=== PATIENT | female | born 1990 | race Caucasian/White ===

== ENCOUNTER 2017-08-23 13:16 | Emergency (ER) | payer SELFPAY ==
[~2017-08-23] VITALS: Ht 157.5 cm; Wt 58.0 kg
[2017-08-23 13:34] VITALS: BP 103/56; PULSE 76; RESP 16; TEMP 98.2; O2SAT 98
[2017-08-23] MEDS ORDERED: SUBO2MIS SL (14:05)
[2017-08-23] MEDS ORDERED: AMOX875T PO (14:10)
--- NOTE | 2017-08-23 14:13 | PD ---
HPI Chief Complaint: Oral / Dental Pain or Problem Time Seen by Provider: 13:39 Travel History International Travel<30 days: No Contact w/Intl Traveler<30days: No Traveled to known affect area: No History of Present Illness HPI 27-year-old female that presents to the ED for evaluation of dental abscess. Patient has a history of this in the past. Per patient she is about 12 weeks . Per patient she started having significant discomfort since 2 days ago. She has had swelling since. She has a bad tooth. She smokes. She denies any urinary or bowel movement issues. No chest pain or shortness of breath. No fevers chills or sweats. Pain per patient is 7 out of 10. No other medical issues at this time. She follows with [facility]. PFSH Past Medical History Medical History: Denies Significant Hx Hx Anticoagulant Therapy: No Diabetes: No Tetanus Vaccination: < 5 Years Influenza Vaccination: No ?: Past Surgical History Abdominal Surgery: Yes (HERNIA REPAIR) Oral Surgery: Yes (DENTAL SURGERY) Social History Alcohol Use: No Tobacco Use: Yes (1/2 PPD, "TRYING TO QUIT") Substance Use: Yes (HX OF, OPIATE ABUSE, IN RECOVERY) Allergies-Medications (Allergen,Severity, Reaction): Coded Allergies: No Known Allergies (Unverified , 08/23/17) Reported Meds & Prescriptions Reported Meds & Active Scripts Active Amoxicillin 875 Mg Tab 875 Mg PO BID 10 Days Reported Suboxone Sublingual Film (Buprenorphine-Naloxone Sublingual Film) 2-0.5 Mg Film Unknown Dose SL Unique ID number required: Review of Systems Except as stated in HPI: all other systems reviewed are Neg Physical Exam Narrative GENERAL: SKIN: Warm and dry. HEAD: Atraumatic. Normocephalic. EYES: Pupils equal and round. No scleral icterus. No injection or drainage. ENT: No nasal bleeding or discharge. Mucous membranes pink and moist. Tongue is midline. No blood deviation. Dental: Patient has bad dentition throughout with most of the molars already gone. Patient does have a bad incisor with cavity on the left upper jaw and some soft tissue swelling of the gum in this area. NECK: Trachea midline. No JVD. CARDIOVASCULAR: Regular rate and rhythm. RESPIRATORY: No accessory muscle use. Clear to auscultation. Breath sounds equal bilaterally. GASTROINTESTINAL: Abdomen soft, non-tender, nondistended. Hepatic and splenic margins not palpable. MUSCULOSKELETAL: Extremities without clubbing, cyanosis, or edema. No obvious deformities. NEUROLOGICAL: Awake and alert. No obvious cranial nerve deficits. Motor grossly within normal limits. Five out of 5 muscle strength in the arms and legs. Normal speech. PSYCHIATRIC: Appropriate mood and affect; insight and judgment normal. Data Data Last Documented VS Vital Signs Date Time Temp Pulse Resp B/P (MAP) Pulse Ox O2 Delivery O2 Flow Rate FiO2 08/23/17 13:34 98.2 76 16 103/56 (72) 98 Orders Orders Ed Discharge Order (08/23/17 14:09) Amoxicillin (Trimox) (08/23/17 14:15) MDM Medical Decision Making Medical Screen Exam Complete: Yes Emergency Medical Condition: Yes Medical Record Reviewed: Yes Differential Diagnosis Abscess versus dentalgia versus dental infection Narrative Course 27-year-old female that presents to the ED for evaluation of dental pain. Patient was properly examined and was found to have signs and symptoms consistent with dental infection. She'll be given amoxicillin here. Given a prescription for this. Told to follow with PCP and that this. Tylenol for pain. See ED worsening symptoms. Diagnosis Primary Impression: Dental infection Patient Instructions: General Instructions Additional Instructions: Take medication as prescribed. Follow-up with PCP. See ED worsening symptoms. Follow with dentist. Med/Other Pt SpecificInfo: Prescription(s) given Scripts Amoxicillin (Amoxicillin) 875 Mg Tab 875 MG PO BID for Infection for 10 Days, #20 TAB 0 Refills Prov: Thomas Tao MD 08/23/17 Disposition: 01 DISCHARGE HOME Condition: Stable Aníbal Tracy Aug 23, 2017 14:13
[2017-08-23] MEDS ORDERED: AMOXICILLIN 875 MG TAB PO ONE (14:15)
== END 2017-08-23 14:30 | disposition home or self-care (01) ==
LOC: PHEFT 13:16
DX: O99.611 Diseases of the digestive system complicating pregnancy, first trimester (principal); K04.7 Periapical abscess without sinus; F17.210 Nicotine dependence, cigarettes, uncomplicated; Z79.891 Long term (current) use of opiate analgesic; Z3A.12 12 weeks gestation of pregnancy
CPT/HCPCS: 99283

== ENCOUNTER 2018-02-10 19:12 | Inpatient (IN) ==
--- NOTE | 2018-02-10 20:01 | P.HPOB ---
History of Present Illness Primary Care Physician: NOT REQUIRED Ginette Adamson Chief Complaint: Water broke History of Present Illness: 27-year-old white female previous 3 who now presents with the ruptured membranes, amnio sure is positive she is grossly ruptured. She is having irregular contractions NST is reactive she sees Ginette Adamson for care at [facility] Weeks Gestation:: 38 Para: 4 : 5 Review of Systems Constitutional: Denies anorexia, Denies body ache(s), Denies chills, Denies daytime sleepiness, Denies excessive sweating, Denies fatigue, Denies fever(s), Denies headache(s), Denies increased appetite, Denies lack of energy, Denies malaise, Denies night sweats, Denies weakness, Denies weight gain, Denies weight loss, Denies other Cardiovascular: Denies bluish discoloration of hand/feet, Denies chest pain, Denies chest pain at rest, Denies chest pain with activity, Denies excessive sweating, Denies fainting, Denies fast heart rate, Denies foot swelling, Denies generalized swelling, Denies irregular heart rhythm, Denies leg pain with activity, Denies leg sores, Denies leg swelling, Denies lightheadedness, Denies radiating jaw, neck or arm pain, Denies rapid, pounding, or irregular heartbeat , Denies shortness of breath, Denies shortness of breath with activity, Denies shortness of breath when lying down, Denies shortness of breath causing sudden awakening, Denies slow heart rate, Denies other Respiratory: Denies change in phlegm color, Denies chest congestion, Denies cough, Denies coughing up blood, Denies excessive phlegm production, Denies pain on inspiration, Denies pain with cough, Denies shortness of breath, Denies shortness of breath with activity, Denies snoring, Denies stridor, Denies wheezing, Denies other Gastrointestinal: Reports abdominal pain, Denies belching, Denies black, tarry stools, Denies bloating, Denies bright, red blood in stools, Denies change in bowel habits, Denies constant urge to pass stool, Denies change in stools, Denies coffee ground vomit, Denies constipation, Denies cramping, Denies difficulty swallowing, Denies excessive passing of gas, Denies feeling full early, Denies heartburn, Denies incontinent of stools, Denies loose stools, Denies nausea, Denies pain with swallowing, Denies vomiting, Denies vomiting blood, Denies other Genitourinary: Reports vaginal discharge, Denies abnormal periods, Denies abnormal vaginal bleeding, Denies absent period, Denies bleeding between periods , Denies blood in urine, Denies difficulty starting urination, Denies difficulty urinating, Denies dribbling after urination, Denies frequent nighttime urination, Denies genital itching, Denies genital lesions, Denies heavy periods, Denies hot flashes, Denies light periods, Denies nipple discharge , Denies painful intercourse, Denies painful periods, Denies painful urination, Denies pelvic pain, Denies prolapse symptoms, Denies sexual problems, Denies side pain, Denies urinary incontinence, Denies urinary urgency, Denies vaginal dryness, Denies vaginal odor, Denies vaginal itching, Denies other Neurologic: Denies abnormal hearing, Denies abnormal movements, Denies abnormal speech, Denies abnormal walking, Denies behavioral changes, Denies burning sensations, Denies confusion, Denies dizziness, Denies fainting, Denies frequent falls, Denies headache(s), Denies lack of coordination, Denies localized weakness, Denies loss of vision, Denies memory loss, Denies numbness, Denies other visual disturbances, Denies radiating pain, Denies restless legs, Denies convulsions, Denies seizure-like activity, Denies sensory deficit, Denies tingling, Denies tingling/numbness/burning sensations, Denies tremor(s), Denies unsteadiness, Denies weakness, Denies other Hematologic/Lymphatic: Denies easy bleeding, Denies easy bruising, Denies enlarged lymph nodes, Denies other PMFSH - Medical History Medical History: Medical History (Last Updated 02/10/18 @ 19:57 by Dakota Mendes MD) Previous section complicating - Tobacco History Smoking Status: Smoker, status unknown Tobacco Type: Cigarettes - Alcohol History How Often Do You Have a Drink Containing Alcohol: Never - Substance Use History Substance History: No History of Abuse, Active Abuse, Past History (Patient currently on Subutex to try and not take previously documented drugs) - Travel History History of Recent Travel: No Recent Travel in the [place] Within the Last 8 Weeks: No Recent Travel Out of the Country Within the Last 8 Weeks: No Medications and Allergies Allergies Allergy/AdvReac Type Severity Reaction Status Date / Time No Known Allergies Allergy Unverified 02/10/18 19:27 Exam Vital signs: Vital Signs 02/10/18 19:33 Pulse Rate 90 Respiratory Rate 16 Blood Pressure 102/56 L Intake & Output 02/10/18 02/10/18 02/11/18 06:59 18:59 06:59 Weight 136 kg Narrative: GENERAL: Well-nourished, well-developed patient. SKIN: Warm and dry. HEAD: Normocephalic and atraumatic. EYES: No scleral icterus. No injection or drainage. ENT: No nasal drainage noted. Mucous membranes pink. Airway patent. NECK: Supple, trachea midline. No JVD. CARDIOVASCULAR: Regular rate and rhythm without murmurs, gallops, or rubs. RESPIRATORY: Breath sounds equal bilaterally. No accessory muscle use. BREASTS: Bilateral exam showed no masses , no retractions, no nipple discharge. ABDOMEN/GI: Abdomen soft, non-tender, bowel sounds present, no rebound, no guarding Gravid to [37-] weeks size Fundal Height: [-36] GENITOURINARY: External Genitalia: intact and normal in appearance BUS glands: [-] Cervix: [pos-] Dilatation: [-1] Effacement: [90-] Station: [-3] Presentation: [-vtx] Membranes: [ ruptured] Uterine Contractions: [-q3 min] FHT's: Category: [1-] Baseline: [133-] Reactive: [R-] Variability: [mod-] Decels: [-0] EXTREMITIES: No cyanosis or edema. BACK: Nontender without obvious deformity. No CVA tenderness. NEUROLOGICAL: Awake and alert. Motor and sensory grossly within normal limits. Five out of 5 muscle strength in all muscle groups. Normal speech. - Constitutional no acute distress - Routine HEENT Exam Head: Present: normocephalic, atraumatic Eye: Present: PERRL Results - Labs Labs: Amnio sure positive Caprini VTE Risk Assessment Caprini VTE Risk Assessment: No/Low Risk (score <= 1) Caprini Risk Assessment Model: Point Value = 1 Point Value = 2 Point Value = 3 Point Value = 5 Age 41-60 Minor surgery BMI > 25 kg/m2 Swollen legs Varicose veins or History of unexplained or recurrent spontaneous Oral contraceptives or hormone replacement Sepsis (< 1 month) Serious lung disease, including pneumonia (< 1 month) Abnormal pulmonary function Acute myocardial infarction Congestive heart failure (< 1 month) History of inflammatory bowel disease Medical patient at bed rest Age 61-74 Arthroscopic surgery Major open surgery (> 45 min) Laparoscopic surgery (> 45 min) Malignancy Confined to bed (> 72 hours) Immobilizing plaster cast Central venous access Age >= 75 History of VTE Family history of VTE Factor V Leiden Prothrombin [id number] Lupus anticoagulant Anticardiolipin antibodies Elevated serum homocysteine Heparin-induced thrombocytopenia Other congenital or acquired thrombophilia Stroke (< 1 month) Elective arthroplasty Hip, pelvis, or leg fracture Acute spinal cord injury (< 1 month) Prophylaxis Regimen: Total Risk Factor Score Risk Level Prophylaxis Regimen 0-1 Low Early ambulation 2 Moderate Order ONE of the following: *Sequential Compression Device (SCD) *Heparin 5000 units SQ BID 3-4 Higher Order ONE of the following medications: *Heparin 5000 units SQ TID *Enoxaparin/Lovenox 40 mg SQ daily (WT < 150 kg, CrCl > 30 mL/min) *Enoxaparin/Lovenox 30 mg SQ daily (WT < 150 kg, CrCl > 10-29 mL/min) *Enoxaparin/Lovenox 30 mg SQ BID (WT < 150 kg, CrCl > 30 mL/min) AND/OR *Sequential Compression Device (SCD) 5 or more Highest Order ONE of the following medications: *Heparin 5000 units SQ TID (Preferred with Epidurals) *Enoxaparin/Lovenox 40 mg SQ daily (WT < 150 kg, CrCl > 30 mL/min) *Enoxaparin/Lovenox 30 mg SQ daily (WT < 150 kg, CrCl > 10-29 mL/min) *Enoxaparin/Lovenox 30 mg SQ BID (WT < 150 kg, CrCl > 30 mL/min) AND *Sequential Compression Device (SCD) Assessment and Plan - Diagnosis (1) Amniotic fluid leaking Code(s): O42.90 - Premature rupture of membranes, unspecified as to length of time between rupture and onset of labor, unspecified weeks of gestation Status : Acute (2) Previous section complicating Code(s): O34.219 - Maternal care for unspecified type scar from previous delivery Status: Acute (3) Uterine contractions during Code(s): O62.2 - Other uterine inertia Status: Acute (4) 38 weeks gestation of Code(s): Z3A.38 - 38 weeks gestation of Status: Acute - Plan This multiparous patient is previous 3 and is set to have a repeat section with tubal ligation. Patient signed tubal papers in 28 December and Ginette Adamson's office. She is gross rupture of membranes this time with contractions. Cervix only 1 cm. NST is reactive and plan to proceed with repeat tubal ligation
[2018-02-10] MEDS ORDERED: Citric Acid/Sodium Citrate Liq 30 ML UDC PO SCH (20:15)
[2018-02-10] MEDS ORDERED: Morphine Sulfate PF Inj 5 MG/10 ML Ampul ONE (20:22)
[2018-02-10 20:36] LABS: Baso # (Auto) 0.1 th/mm3 (0.0-0.2); Baso % (Auto) 0.4 % (0.0-2.0); Eos # (Auto) 0.2 th/mm3 (0.0-0.4); Eos % (Auto) 1.3 % (0.0-4.0); Hematocrit 30.2 % (35.0-46.0); Hemoglobin 10.4 gm/dL (11.6-15.3); Lymph # (Auto) 1.8 th/mm3 (1.0-4.8); Lymph % (Auto) 12.2 % (9.0-44.0); Mean Corpuscular HGB Conc 34.4 % (32.0-36.0); Mean Platelet Volume 8.3 fL (7.0-11.0); Neut # (Auto) 11.5 th/mm3 (1.8-7.7); Neut % (Auto) 79.1 % (16.0-70.0); Platelet Count 378 th/mm3 (150-450); Red Blood Count 3.15 mil/mm3 (4.00-5.30); Red Cell Distribution Width 12.7 % (11.6-17.2); White Blood Count 14.5 th/mm3 (4.0-11.0)
[2018-02-10 20:41] LABS: Bilirubin,Urine Negative (Negative); Clarity,Urine Clear (Clear); Color,Urine Yellow (Yellw/Straw); Glucose,Urine (UA) Negative (Negative); Leukocyte Esterase,Urine Negative (Negative); Nitrite,Urine Negative (Negative); Specific Gravity,Urine 1.014 (1.002-1.035); Squamous Epithelial Cell,Urine 1 /hpf (0-5)
[2018-02-10] MEDS ORDERED: ceFAZolin Inj 2,000 MG in Sodium Chlor 0.9% Inj 80 ML IV.SIG SCH (21:00)
[2018-02-10] MEDS ORDERED: fentaNYL Citrate Inj 100 MCG/2 ML Ampul ONE (21:38)
[2018-02-10] MEDS ORDERED: Phenylephrine/NS 1000 MCG/10ML Syringe IV.PUSH ONE (21:45)
[2018-02-10 22:01] LABS: Amphetamine Screen,Urine Neg (Neg); Barbiturate Screen,Urine Neg (Neg); Cannabinoid Screen,Urine Neg (Neg); Cocaine Screen,Urine Neg (Neg)
[2018-02-10 22:04] LABS: Opiate Screen,Urine Neg (Neg)
[2018-02-10] MEDS ORDERED: Zolpidem Tartrate 5 MG Tablet PO PRN (22:19)
[2018-02-10] MEDS ORDERED: Senna/Docusate Sodium 8.6/50 MG Tablet PO PRN (22:19)
[2018-02-10] MEDS ORDERED: Oxytocin 30 Units/500ml Premix 30 UNITS/500 ML BAG IV.SIG ONE (22:19)
[2018-02-10] MEDS ORDERED: Acetaminophen 325 MG Tablet PO PRN (22:19)
[2018-02-10] MEDS ORDERED: Methylergonovine Inj 0.2 MG/ML Ampul ONE (22:52)
[2018-02-10] MEDS ORDERED: miSOPROStol 200 MCG Tablet ONE (22:53)
[2018-02-10] MEDS ORDERED: Oxytocin 30 Units/500ml Premix 30 UNITS/500 ML BAG ONE ×3 (22:59→23:49)
--- NOTE | 2018-02-10 23:11 | P.OP ---
- Preoperative Diagnosis (1) Previous section complicating (2) Amniotic fluid leaking (3) Uterine contractions during - Postoperative Diagnosis (1) Amniotic fluid leaking (2) Previous section complicating Date of procedure: 02/10/18 Procedure: Repeat low transverse section bilateral tubal ligation Anesthesia: spinal Surgeon: Dakota Mendes MD Estimated blood loss (mL): 600 IV fluids (mL): 1,000 Urine output (mL): 100 Operation and Findings: Patient was taken the operating room and after spinal anesthesia prepped and draped for abdominal surgery. Previous Pfannenstiel incision was excised out cast-off incision carried to the fascia sharply and the fascia incised laterally and off the rectus muscle. The peritoneal cavity entered sharply in the midline the incision extended superior and inferiorly. The bladder blade placed lower is the incision and the visceral peritoneum reflected off the lower uterine segment. A transverse hysterotomy was made extended bluntly bilaterally and the placenta was encountered at that point, the female was delivered at 9:34 PM Apgars 8/ 8 weight 2435 gm , delayed cord clamping done cord blood obtained, placenta basically delivered itself through the incision and was sent to pathology. Baby taken to the warmer for routine to evaluate. The uterus exteriorized the hysterotomy closed in a running layer of 0 chromic followed by imbricating suture same hemostasis achieved with several stick ties. The uterus is elevated with sponges and the left tube was grasped with a Natalia clamp followed to fimbriated end. A avascular portion of mesosalpinx was found and hemostat passed through the mesosalpinx and 2 suture ties brought through that window and the tubes tied fore and aft and the intervening segment excised and sent to pathology. Same was done on the opposite side without difficulty and hemostasis was achieved. Uterus is elevated blood suctioned the cul-de-sac gutters and the uterus replaced the peritoneal cavity. The fascia was closed running layer of 0 Vicryl. Subcutaneous tissues reapproximated with 3-0 plain catgut suture and skin closed with 3-0 Monocryl subcuticular stitch. A pressure check applied. Estimated blood loss 600 cc, sponge and needle correct 2 and the patient taken to recovery in stable condition.
[2018-02-10] MEDS ORDERED: Carboprost Tromethamine Inj 250 MCG/ML Ampul IM ONE ×3 (23:30→23:44)
[2018-02-10] MEDS ORDERED: Tranexamic Acid Inj 1,000 MG/10 ML Ampul ONE (23:30)
[2018-02-10 23:38] LABS: Baso # (Auto) 0.1 th/mm3 (0.0-0.2); Baso % (Auto) 0.4 % (0.0-2.0); Eos # (Auto) 0.2 th/mm3 (0.0-0.4); Eos % (Auto) 0.7 % (0.0-4.0); Lymph # (Auto) 2.8 th/mm3 (1.0-4.8); Lymph % (Auto) 11.6 % (9.0-44.0); Mean Corpuscular HGB Conc 34.4 % (32.0-36.0); Mean Corpuscular Hemoglobin 33.6 pg (27.0-34.0); Mean Corpuscular Volume 97.5 fL (80.0-100.0); Mean Platelet Volume 8.6 fL (7.0-11.0); Mono # (Auto) 1.3 th/mm3 (0.0-0.9); Mono % (Auto) 5.2 % (0.0-8.0); Neut # (Auto) 19.8 th/mm3 (1.8-7.7); Neut % (Auto) 82.1 % (16.0-70.0); Platelet Count 342 th/mm3 (150-450); Red Blood Count 1.83 mil/mm3 (4.00-5.30); Red Cell Distribution Width 12.8 % (11.6-17.2); White Blood Count 24.1 th/mm3 (4.0-11.0)
[2018-02-10 23:42] LABS: Hematocrit 17.8 % (35.0-46.0); Hemoglobin 6.1 gm/dL (11.6-15.3)
[2018-02-10 23:56] LABS: Lymphocytes 14 % (9-44); Monocytes 4 % (0-8)
[2018-02-10 23:57] LABS: Platelet Estimate Normal (Normal); Platelet Morphology Normal (Normal); RBC Morphology Normal (Normal)
[2018-02-11] MEDS ORDERED: Tranexamic Acid Inj 1,000 MG/10 ML Ampul ONE (00:01)
[2018-02-11] MEDS ORDERED: Carboprost Tromethamine Inj 250 MCG/ML Ampul IM ONE ×2 (00:06→02:06)
[2018-02-11 00:12] LABS: Activated Partial Thrombo Time 25.9 sec (24.3-30.1); INR 1.1 Ratio; Prothrombin Time 11.1 sec (9.8-11.6)
[2018-02-11] MEDS ORDERED: Oxytocin 30 Units/500ml Premix 30 UNITS/500 ML BAG ONE (00:19)
[2018-02-11] MEDS ORDERED: Succinylcholine Inj 200 MG/10 ML Vial IV.PUSH ONE (00:45)
[2018-02-11] MEDS ORDERED: Lidocaine PF 1% Inj 5 ML Syringe OTHER ONE (00:45)
[2018-02-11] MEDS ORDERED: Morphine Inj 4 MG/ML Vial ONE ×2 (01:06)
[2018-02-11] MEDS ORDERED: Sugammadex Inj 200 MG/2 ML Vial IV.PUSH ONE (01:08)
[2018-02-11 01:40] LABS: Baso # (Auto) 0.2 th/mm3 (0.0-0.2); Baso % (Auto) 0.6 % (0.0-2.0); Eos % (Auto) 0.1 % (0.0-4.0); Hematocrit 27.9 % (35.0-46.0); Hemoglobin 9.4 gm/dL (11.6-15.3); Lymph # (Auto) 2.4 th/mm3 (1.0-4.8); Mean Corpuscular HGB Conc 33.6 % (32.0-36.0); Mean Corpuscular Hemoglobin 30.9 pg (27.0-34.0); Mean Platelet Volume 8.5 fL (7.0-11.0); Mono # (Auto) 0.9 th/mm3 (0.0-0.9); Mono % (Auto) 3.3 % (0.0-8.0); Neut # (Auto) 22.7 th/mm3 (1.8-7.7); Platelet Count 196 th/mm3 (150-450); Red Blood Count 3.04 mil/mm3 (4.00-5.30); Red Cell Distribution Width 15.2 % (11.6-17.2); White Blood Count 26.1 th/mm3 (4.0-11.0)
[2018-02-11 01:56] LABS: Activated Partial Thrombo Time 31.4 sec (24.3-30.1)
[2018-02-11 02:04] LABS: Anion Gap 9 meq/L (5-15); Blood Urea Nitrogen 8 mg/dL (7-18); Calcium 6.2 mg/dL (8.5-10.1); Carbon Dioxide 23.6 meq/L (21.0-32.0); Chloride 109 meq/L (98-107); Glomerular Filtration Rate Greater Than 89 mL/min (>89); Glucose,Random 186 mg/dL (74-106); Potassium 4.4 meq/L (3.5-5.1); Sodium 142 meq/L (136-145)
--- NOTE | 2018-02-11 02:05 | P.OP ---
- Preoperative Diagnosis (1) hemorrhage - Postoperative Diagnosis (1) hemorrhage Date of procedure: 02/11/18 Procedure: Post dilation and curettage and placement of Bakri uterine tamponade balloon Anesthesia: GETA Surgeon: Dakota Mendes MD Estimated blood loss (mL): 500 (Received 4 units packed red blood cells) IV fluids (mL): 1,000 Urine output (mL): 20 Operation and Findings: This multiparous patient previous was taken the operating room and had repeat section tubal ligation due to rupture the membranes at term , section itself was uneventful however in the recovery area the patient continued vaginal bleeding, that was unresponsive to uterotonic agents patient's blood pressure was in the range of 70-80/50 with a pulse greater than 100. [place] patient needed to have operative intervention. She was taken the operating room and placed on the operating table had a general anesthetic administered. She is placed in the dorsolithotomy position, and at that time the vagina was cleaned of all blood clots the uterus and cervix were examined. The cervix was noted to be approximately 3 cm dilated and then manually removed a large handful of blood clots. Cervix grasped with a long Allis clamp and a dilation and curettage was performed with a large banjo forcep, there is no sign of uterine injury. Small fragments of placental tissue was noted on a D& C. The uterus was adequately evacuated and then the Bakri uterine tamponade balloon was then placed into the uterus and was at that time deflated. Once placed in the uterus subsequent syringes of normal saline we filled the balloon to level of 420 cc. Then large packing gauze was used to pack the vagina to keep the balloon in place. This maneuver achieved hemostasis and there was no further vaginal bleeding noted post procedure,. estimate blood loss 500 cc, patient hemoglobin was 6 and she received 4 units of packed red cells before during and after procedure. Patient was transported to the third floor PACU for observation overnight
[2018-02-11] MEDS ORDERED: Methylergonovine Inj 0.2 MG/ML Ampul IM ONE (02:07)
[2018-02-11 02:08] LABS: Eosinophils 1 % (0-4); Lymphocytes 10 % (9-44); Metamyelocytes 1 % (0-1); Monocytes 3 % (0-8)
[2018-02-11] MEDS ORDERED: Oxytocin 30 Units/500ml Premix 30 UNITS/500 ML BAG IV.SIG ONE (02:08)
[2018-02-11 02:09] LABS: Platelet Estimate Normal (Normal); Platelet Morphology Normal (Normal); RBC Morphology Normal (Normal)
[2018-02-11] MEDS ORDERED: miSOPROStol 200 MCG Tablet RECTAL ONE (02:09)
[2018-02-11 02:20] LABS: Total Protein 3.4 g/dL (6.4-8.2)
[2018-02-11] MEDS: Morphine Inj 4 MG/ML Vial IV.PUSH PRN ×2 (02:55→08:06)
[2018-02-11] MEDS ORDERED: Tranexamic Acid Inj 1,000 MG in Sodium Chlor 0.9% Inj 100 ML IV.SIG SCH ×3 (03:00)
[2018-02-11] MEDS ORDERED: Oxytocin 30 Units/500ml Premix 30 UNITS/500 ML BAG IV.SIG PRN (03:19)
[2018-02-11] MEDS: Ampicillin/Sulbactam Inj 3 GM in Sodium Chloride 0.9% Inj 100 ML IV.SIG SCH ×2 (04:30→08:56)
[2018-02-11] MEDS: ceFAZolin Inj 2,000 MG in Sodium Chlor 0.9% Inj 80 ML IV.SIG SCH ×2 (04:54→16:58)
[2018-02-11 07:06] LABS: Baso # (Auto) 0.1 th/mm3 (0.0-0.2); Baso % (Auto) 0.2 % (0.0-2.0); Hematocrit 24.3 % (35.0-46.0); Hemoglobin 8.3 gm/dL (11.6-15.3); Lymph # (Auto) 1.3 th/mm3 (1.0-4.8); Mean Corpuscular HGB Conc 34.3 % (32.0-36.0); Mean Corpuscular Hemoglobin 30.8 pg (27.0-34.0); Mean Corpuscular Volume 89.8 fL (80.0-100.0); Mean Platelet Volume 8.4 fL (7.0-11.0); Mono # (Auto) 1.8 th/mm3 (0.0-0.9); Mono % (Auto) 5.5 % (0.0-8.0); Neut # (Auto) 29.2 th/mm3 (1.8-7.7); Neut % (Auto) 90.3 % (16.0-70.0); Platelet Count 193 th/mm3 (150-450); Red Cell Distribution Width 15.4 % (11.6-17.2); White Blood Count 32.3 th/mm3 (4.0-11.0)
[2018-02-11 07:18] LABS: Activated Partial Thrombo Time 25.9 sec (24.3-30.1); INR 1.1 Ratio; Prothrombin Time 10.8 sec (9.8-11.6)
[2018-02-11 07:33] LABS: Alanine Aminotransferase 20 U/L (10-53); Albumin 1.5 g/dL (3.4-5.0); Anion Gap 9 meq/L (5-15); Aspartate Aminotransferase 32 U/L (15-37); Blood Urea Nitrogen 12 mg/dL (7-18); Calcium 6.4 mg/dL (8.5-10.1); Carbon Dioxide 23.3 meq/L (21.0-32.0); Chloride 111 meq/L (98-107); Glomerular Filtration Rate Greater Than 89 mL/min (>89); Glucose,Random 105 mg/dL (74-106); Potassium 3.9 meq/L (3.5-5.1); Sodium 143 meq/L (136-145)
[2018-02-11 07:35] LABS: Alkaline Phosphatase 93 U/L (45-117); Total Protein 3.8 g/dL (6.4-8.2)
[2018-02-11] MEDS ORDERED: BUPRENORPHINE SL SCH (09:00)
[2018-02-11] MEDS ORDERED: PNV CMB FERROUS FUMARATE FA PO SCH (09:00)
[2018-02-11] MEDS ORDERED: NALOXONE SL SCH (09:00)
[2018-02-11 09:08] LABS: Lymphocytes 5 % (9-44); Monocytes 3 % (0-8)
[2018-02-11 09:09] LABS: Platelet Estimate Normal (Normal); Platelet Morphology Normal (Normal)
[2018-02-11] MEDS: Ferrous Sulfate 325 MG Tablet PO SCH (10:58)
--- NOTE | 2018-02-11 10:59 | P.PNOB ---
Subjective Post day: 1 Interval history: Patient was delivered by c Section, and had PPH , controlled with bakri uterine tamponade, after not responding to ureterotnic gaents. Pt is uncomfortable, c/o pain right flank. Objective Vital Signs/I&O: Vital Signs 02/10/18 19:33 02/10/18 20:45 02/10/18 22:35 Temperature 97.5 F L Pulse Rate 90 109 H Respiratory Rate 16 16 16 Blood Pressure 102/56 L 96/54 L Pulse Oximetry 02/10/18 22:50 02/10/18 22:56 02/10/18 23:05 Temperature Pulse Rate 115 H Respiratory Rate 16 Blood Pressure 82/43 L 70/53 L Pulse Oximetry 02/10/18 23:09 02/10/18 23:12 02/10/18 23:16 Temperature Pulse Rate Respiratory Rate Blood Pressure 87/50 L 93/54 L 99/50 L Pulse Oximetry 02/10/18 23:24 02/10/18 23:37 02/10/18 23:40 Temperature Pulse Rate Respiratory Rate Blood Pressure 96/51 L 84/50 L 92/50 L Pulse Oximetry 02/10/18 23:54 02/11/18 00:00 02/11/18 00:14 Temperature Pulse Rate Respiratory Rate Blood Pressure 101/59 L 93/53 L 101/56 L Pulse Oximetry 02/11/18 00:25 02/11/18 01:25 02/11/18 01:45 Temperature 96.7 F L Pulse Rate 62 61 Respiratory Rate 20 22 Blood Pressure 100/57 L 85/39 L 99/51 L Pulse Oximetry 100 100 02/11/18 02:00 02/11/18 02:15 02/11/18 02:30 Temperature 97.5 F L Pulse Rate 65 72 93 H Respiratory Rate 18 18 18 Blood Pressure 93/55 L 97/58 L 118/53 L Pulse Oximetry 100 100 100 02/11/18 02:52 02/11/18 02:55 02/11/18 03:01 Temperature 98.4 F Pulse Rate 90 Respiratory Rate 16 16 Blood Pressure 87/49 L Pulse Oximetry 02/11/18 03:03 02/11/18 03:20 02/11/18 03:25 Temperature Pulse Rate 86 80 98 H Respiratory Rate Blood Pressure 92/55 L 86/52 L 100/63 Pulse Oximetry 02/11/18 03:45 02/11/18 04:15 02/11/18 04:20 Temperature Pulse Rate 95 H 89 107 H Respiratory Rate Blood Pressure 95/63 L 97/61 L 104/61 Pulse Oximetry 02/11/18 04:30 02/11/18 05:00 02/11/18 05:20 Temperature Pulse Rate 95 H 105 H 100 H Respiratory Rate Blood Pressure 101/60 92/73 L 101/62 Pulse Oximetry 02/11/18 05:30 02/11/18 05:42 02/11/18 05:55 Temperature 99.4 F Pulse Rate 96 H 98 H Respiratory Rate Blood Pressure 92/58 L 109/65 Pulse Oximetry 02/11/18 06:00 02/11/18 07:00 02/11/18 07:15 Temperature Pulse Rate 99 H 93 H 86 Respiratory Rate Blood Pressure 104/55 L 104/63 102/55 L Pulse Oximetry 02/11/18 08:00 02/11/18 08:15 02/11/18 08:16 Temperature 98.0 F Pulse Rate 86 78 Respiratory Rate 16 Blood Pressure 106/63 105/65 Pulse Oximetry 02/11/18 08:30 02/11/18 09:01 02/11/18 09:49 Temperature 99.3 F Pulse Rate 79 78 85 Respiratory Rate 16 Blood Pressure 106/59 L 116/86 101/59 L Pulse Oximetry 02/11/18 10:05 02/11/18 10:20 02/11/18 10:30 Temperature Pulse Rate 82 79 85 Respiratory Rate Blood Pressure 108/52 L 100/65 107/61 Pulse Oximetry 02/11/18 10:40 02/11/18 10:51 Temperature 99.2 F Pulse Rate 84 Respiratory Rate 16 Blood Pressure Pulse Oximetry Intake & Output 02/10/18 02/11/18 02/11/18 18:59 06:59 18:59 Intake Total 1000 / 1000 Output Total 70 / 70 Balance 930 / 930 Weight 136 kg Intake: IV 100 / 100 Unasyn Inj 3 GM In NS Inj 100 100 / 100 ML @ 200 mls/hr IV.SIG Q6H [facility] Rx#:[id number] Other 500 / 500 Intake (Blood Product) Amt 400 / 400 Rbc As-3 Leukoreduced Unit 400 / 400 [id number] Rbc As-3 Leukoreduced Unit 0 / 0 [id number] Output: Urine Amount (Catheter) / Indwelling Urethral Catheter Result Diagrams: 02/11/18 06:40 02/11/18 06:40 Objective Remarks: GENERAL: Well-nourished, well-developed patient. CARDIOVASCULAR: Regular rate and rhythm without murmurs, gallops, or rubs. RESPIRATORY: Breath sounds equal bilaterally. No accessory muscle use. ABDOMEN/GI: Abdomen softly distended. Fundus firm, palpates about 3FB above umbilicus. Fundus: Firm, tender abdomen. GENITOURINARY: Light to moderate bleeding. EXTREMITIES: No cyanosis or edema, non-tender, without signs of DVT. Urine output satisfactory. Only about 10cc blood draining from intrauterine outlet. Urine Output satisfactory, about 75cc/hour. 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 [facility] Stop: 02/14/18 20:14 Diphtheria/Pertussis/Tetanus Vacc (Boostrix Vaccine Inj) 0.5 ml IM .ONCE ONE Stop: 02/11/18 16:01 Ferrous Sulfate (Ferosul) 65 mg PO DAILY [facility] Lactated Ringer's (Lr 1000 Ml Inj) 1,000 mls @ 150 mls/hr IV.CONT .Q6H40M [facility] Last Admin: 02/11/18 04:42 Dose: Not Given Cefazolin Sodium 2,000 mg/ (Sodium Chloride) 100 mls @ 200 mls/hr IV.SIG CONTACT LENS INSPECTOR [facility] Stop: 02/14/18 20:59 Last Admin: 02/10/18 21:10 Dose: 200 mls/hr Lactated Ringer's (Lr 1000 Ml Inj) 1,000 mls @ 100 mls/hr IV.CONT .Q10H [facility] Stop: 02/11/18 23:18 Last Admin: 02/11/18 04:49 Dose: 100 mls/hr Oxytocin (Pitocin 30 Units/Ns 500 Ml Premix) 30 units in 500 mls @ 100 mls/hr IV.SIG UNSCH PRN PRN Reason: Heavy bleeding Last Admin: 02/11/18 00:05 Dose: 100 mls/hr Tranexamic Acid 1,000 mg/ (Sodium Chloride) 110 mls @ 200 mls/hr IV.SIG ONCE [facility] Last Admin: 02/10/18 23:35 Dose: 200 mls/hr Tranexamic Acid 1,000 mg/ (Sodium Chloride) 110 mls @ 200 mls/hr IV.SIG ONCE [facility] Last Admin: 02/11/18 00:05 Dose: 200 mls/hr Ampicillin Sodium/Sulbactam (Sodium 3 gm/ Sodium Chloride) 100 mls @ 200 mls/ hr IV.SIG Q6H [facility] Last Admin: 02/11/18 08:56 Dose: 200 mls/hr Ibuprofen (Motrin) 800 mg PO Q8H PRN PRN Reason: cramping Ketorolac Tromethamine (Toradol Inj) 30 mg IM Q6H PRN PRN Reason: SEE LABEL COMMENTS Measles/Mumps/Rubella Vaccine Live (M-M-R Ii Vaccine Inj) 0.5 ml SQ .ONCE ONE Stop: 02/11/18 16:01 Morphine Sulfate (Morphine Inj) 4 mg IV.PUSH Q4H PRN PRN Reason: ABDOMINAL PAIN Last Admin: 02/11/18 08:06 Dose: 4 mg Ondansetron HCl (Zofran Inj) 4 mg IV.PUSH Q6H PRN PRN Reason: NAUSEA OR VOMITING Oxycodone/Acetaminophen (Percocet 5/325 Mg) 1 tab PO Q4H PRN PRN Reason: PAIN SCALE 3 TO 5 Oxycodone/Acetaminophen (Percocet 5/325 Mg) 2 tab PO Q4H PRN PRN Reason: PAIN SCALE 6 TO 10 Pat Own Med: Pnv Cmb #95-Ferrous Fumarate -Fa [] Tablet 0 each PO DAILY [facility] Pat Own Med: Buprenorphine- Naloxone [Suboxone] 4mg/1mg Film 0 each SL BID [facility] Senna/Docusate Sodium (Alicia-Colace) 2 tab PO Q12H PRN PRN Reason: CONSTIPATION Simethicone (Mylicon Chew) 80 mg PO QID PRN PRN Reason: FLATULENCE Sodium Chloride (Ns Flush) 2 ml IV.FLUSH BID [facility] Last Admin: 02/11/18 08:57 Dose: 2 ml Sodium Chloride (Ns Flush) 2 ml IV.FLUSH PRN PRN PRN Reason: FLUSH AFTER USING IV ACCESS Zolpidem Tartrate (Ambien) 5 mg PO HS PRN PRN Reason: INSOMNIA Assessment and Plan - Diagnosis (1) hemorrhage Code(s): O72.1 - Other immediate hemorrhage Status: Acute Plan: Patient is stable. She is s/p repeat LTCS, Vitals are stable, with good urine output. Bakri balloon in place, with minimal output from intrauterine outlet. Will attempt to optimize pain control. (1) hemorrhage Qualifiers: hemorrhage type: other immediate Qualified Code(s): O72.1 - Other immediate hemorrhage
[2018-02-11] MEDS ORDERED: HYDROmorphone PF Inj 2 MG/ML Vial IV.PUSH ONE (11:30)
[2018-02-11] MEDS ORDERED: Gentamicin Consult Pharmacy 1 EACH OTHER SCH (12:00)
[2018-02-11] MEDS: Clindamycin 900 mg/NS Premix 900 MG/50 ML PIGGYBACK IV.SIG SCH ×2 (13:04→21:28)
[2018-02-11 13:14] LABS: Mean Corpuscular Hemoglobin 30.2 pg (27.0-34.0); Mean Corpuscular Volume 88.8 fL (80.0-100.0); Mean Platelet Volume 8.8 fL (7.0-11.0); Platelet Count 186 th/mm3 (150-450); Red Cell Distribution Width 15.7 % (11.6-17.2); White Blood Count 41.5 th/mm3 (4.0-11.0)
[2018-02-11 13:22] LABS: Hematocrit 20.4 % (35.0-46.0)
[2018-02-11 13:24] LABS: Prothrombin Time 10.6 sec (9.8-11.6)
[2018-02-11] MEDS: GENTAMICIN IV.SIG SCH ×2 (14:24→21:29)
[2018-02-11] MEDS: SODIUM CHLOR 0.9% IV.SIG SCH ×2 (14:24→21:29)
[2018-02-11] MEDS: HYDROmorphone PF Inj 2 MG/ML Vial IV.PUSH PRN ×3 (15:08→23:39)
--- NOTE | 2018-02-11 15:38 | P.PNOB ---
Subjective Post day: 0 Interval history: Patient is doing well. Main complaint is abdominal pain. Urine output is good. Intrauterine drainage around the balloon remains minimal. Bakri balloon removal procedure explained. Objective Vital Signs/I&O: Vital Signs 02/10/18 19:33 02/10/18 20:45 02/10/18 22:35 Temperature 97.5 F L Pulse Rate 90 109 H Respiratory Rate 16 16 16 Blood Pressure 102/56 L 96/54 L Pulse Oximetry 02/10/18 22:50 02/10/18 22:56 02/10/18 23:05 Temperature Pulse Rate 115 H Respiratory Rate 16 Blood Pressure 82/43 L 70/53 L Pulse Oximetry 02/10/18 23:09 02/10/18 23:12 02/10/18 23:16 Temperature Pulse Rate Respiratory Rate Blood Pressure 87/50 L 93/54 L 99/50 L Pulse Oximetry 02/10/18 23:24 02/10/18 23:37 02/10/18 23:40 Temperature Pulse Rate Respiratory Rate Blood Pressure 96/51 L 84/50 L 92/50 L Pulse Oximetry 02/10/18 23:54 02/11/18 00:00 02/11/18 00:14 Temperature Pulse Rate Respiratory Rate Blood Pressure 101/59 L 93/53 L 101/56 L Pulse Oximetry 02/11/18 00:25 02/11/18 01:25 02/11/18 01:45 Temperature 96.7 F L Pulse Rate 62 61 Respiratory Rate 20 22 Blood Pressure 100/57 L 85/39 L 99/51 L Pulse Oximetry 100 100 02/11/18 02:00 02/11/18 02:15 02/11/18 02:30 Temperature 97.5 F L Pulse Rate 65 72 93 H Respiratory Rate 18 18 18 Blood Pressure 93/55 L 97/58 L 118/53 L Pulse Oximetry 100 100 100 02/11/18 02:52 02/11/18 02:55 02/11/18 03:01 Temperature 98.4 F Pulse Rate 90 Respiratory Rate 16 16 Blood Pressure 87/49 L Pulse Oximetry 02/11/18 03:03 02/11/18 03:20 02/11/18 03:25 Temperature Pulse Rate 86 80 98 H Respiratory Rate Blood Pressure 92/55 L 86/52 L 100/63 Pulse Oximetry 02/11/18 03:45 02/11/18 04:15 02/11/18 04:20 Temperature Pulse Rate 95 H 89 107 H Respiratory Rate Blood Pressure 95/63 L 97/61 L 104/61 Pulse Oximetry 02/11/18 04:30 02/11/18 05:00 02/11/18 05:20 Temperature Pulse Rate 95 H 105 H 100 H Respiratory Rate Blood Pressure 101/60 92/73 L 101/62 Pulse Oximetry 02/11/18 05:30 02/11/18 05:42 02/11/18 05:55 Temperature 99.4 F Pulse Rate 96 H 98 H Respiratory Rate Blood Pressure 92/58 L 109/65 Pulse Oximetry 02/11/18 06:00 02/11/18 07:00 02/11/18 07:15 Temperature Pulse Rate 99 H 93 H 86 Respiratory Rate Blood Pressure 104/55 L 104/63 102/55 L Pulse Oximetry 02/11/18 08:00 02/11/18 08:15 02/11/18 08:16 Temperature 98.0 F Pulse Rate 86 78 Respiratory Rate 16 Blood Pressure 106/63 105/65 Pulse Oximetry 02/11/18 08:30 02/11/18 09:01 02/11/18 09:49 Temperature 99.3 F Pulse Rate 79 78 85 Respiratory Rate 16 Blood Pressure 106/59 L 116/86 101/59 L Pulse Oximetry 02/11/18 10:05 02/11/18 10:20 02/11/18 10:30 Temperature Pulse Rate 82 79 85 Respiratory Rate Blood Pressure 108/52 L 100/65 107/61 Pulse Oximetry 02/11/18 10:40 02/11/18 10:50 02/11/18 10:51 Temperature 99.2 F Pulse Rate 84 82 Respiratory Rate 16 Blood Pressure 93/78 L Pulse Oximetry 02/11/18 11:20 02/11/18 11:27 02/11/18 11:30 Temperature 101.5 F H Pulse Rate 82 92 H 95 H Respiratory Rate 16 Blood Pressure 104/58 L 102/60 Pulse Oximetry 02/11/18 11:35 02/11/18 12:00 02/11/18 12:25 Temperature Pulse Rate 86 84 82 Respiratory Rate Blood Pressure 105/55 L 104/61 Pulse Oximetry 02/11/18 12:32 02/11/18 13:15 02/11/18 13:25 Temperature 100.4 F H Pulse Rate 84 86 Respiratory Rate 16 16 Blood Pressure 106/54 L 110/60 Pulse Oximetry 02/11/18 13:35 02/11/18 14:30 Temperature 100.2 F H Pulse Rate 81 85 Respiratory Rate 16 Blood Pressure 102/61 102/64 Pulse Oximetry Intake & Output 02/10/18 02/11/18 02/11/18 18:59 06:59 18:59 Intake Total 1000 / 1000 Output Total 70 / 70 Balance 930 / 930 Weight 136 kg 61.689 kg Intake: IV 100 / 100 Unasyn Inj 3 GM In NS Inj 100 100 / 100 ML @ 200 mls/hr IV.SIG Q6H [facility] Rx#:[id number] Other 500 / 500 Intake (Blood Product) Amt 400 / 400 Rbc As-3 Leukoreduced Unit 400 / 400 [id number] Rbc As-3 Leukoreduced Unit 0 / 0 [id number] Output: Urine Amount (Catheter) 70 / 70 Indwelling Urethral Catheter 70 / 70 Result Diagrams: 02/11/18 12:45 02/11/18 06:40 Objective Remarks: GENERAL: Well-nourished, well-developed patient. CARDIOVASCULAR: Regular rate and rhythm without murmurs, gallops, or rubs. RESPIRATORY: Breath sounds equal bilaterally. No accessory muscle use. ABDOMEN/GI: Abdomen soft, non-tender. Fundus: Firm, non-tender at umbilicus. GENITOURINARY: vaginal packing removed, dry, old blood stain. Intrauterine balloon deflated of 600cc saline. Balloon then removed slowly. Minimal bleeding noted. EXTREMITIES: No cyanosis or edema, non-tender, without signs of DVT. 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 [facility] Stop: 02/14/18 20:14 Diphtheria/Pertussis/Tetanus Vacc (Boostrix Vaccine Inj) 0.5 ml IM .ONCE ONE Stop: 02/11/18 16:01 Ferrous Sulfate (Ferosul) 65 mg PO DAILY [facility] Last Admin: 02/11/18 10:58 Dose: Not Given Hydromorphone HCl (Dilaudid Pf Inj) 2 mg IV.PUSH Q4H PRN PRN Reason: ABDOMINAL PAIN Last Admin: 02/11/18 15:08 Dose: 2 mg Lactated Ringer's (Lr 1000 Ml Inj) 1,000 mls @ 150 mls/hr IV.CONT .Q6H40M [facility] Last Admin: 02/11/18 11:02 Dose: 150 mls/hr Cefazolin Sodium 2,000 mg/ (Sodium Chloride) 100 mls @ 200 mls/hr IV.SIG [employer] 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 [facility] Stop: 02/14/18 20:59 Last Admin: 02/10/18 21:10 Dose: 200 mls/hr Lactated Ringer's (Lr 1000 Ml Inj) 1,000 mls @ 100 mls/hr IV.CONT .Q10H [facility] Stop: 02/11/18 23:18 Last Admin: 02/11/18 04:49 Dose: 100 mls/hr Oxytocin (Pitocin 30 Units/Ns 500 Ml Premix) 30 units in 500 mls @ 100 mls/hr IV.SIG UNSCH PRN PRN Reason: Heavy bleeding Last Admin: 02/11/18 00:05 Dose: 100 mls/hr Tranexamic Acid 1,000 mg/ (Sodium Chloride) 110 mls @ 200 mls/hr IV.SIG ONCE [facility] Last Admin: 02/10/18 23:35 Dose: 200 mls/hr Tranexamic Acid 1,000 mg/ (Sodium Chloride) 110 mls @ 200 mls/hr IV.SIG ONCE [facility] Last Admin: 02/11/18 00:05 Dose: 200 mls/hr Clindamycin/Sodium Chloride (Cleocin 900 Mg/Ns Premix) 900 mg in 50 mls @ 100 mls/hr IV.SIG Q8H [facility] Last Admin: 02/11/18 13:04 Dose: 100 mls/hr Pharmacy Profile Note (Gentamicin Consult Pharmacy) 0 mls @ 0 mls/hr OTHER UNSCH [facility] Gentamicin Sulfate 90 mg/ (Sodium Chloride) 102.25 mls @ 100 mls/hr IV.SIG Q8H [facility] Ibuprofen (Motrin) 800 mg PO Q8H PRN PRN Reason: cramping Ketorolac Tromethamine (Toradol Inj) 30 mg IM Q6H PRN PRN Reason: SEE LABEL COMMENTS Measles/Mumps/Rubella Vaccine Live (M-M-R Ii Vaccine Inj) 0.5 ml SQ .ONCE ONE Stop: 02/11/18 16:01 Miscellaneous Information ([facility] Ordered Lab Info) 1 each OTHER ONCE ONE Stop: 02/12/18 13:01 Ondansetron HCl (Zofran Inj) 4 mg IV.PUSH Q6H PRN PRN Reason: NAUSEA OR VOMITING Oxycodone/Acetaminophen (Percocet 5/325 Mg) 1 tab PO Q4H PRN PRN Reason: PAIN SCALE 3 TO 5 Oxycodone/Acetaminophen (Percocet 5/325 Mg) 2 tab PO Q4H PRN PRN Reason: PAIN SCALE 6 TO 10 Pat Own Med: Pnv Cmb #95-Ferrous Fumarate -Fa [] Tablet 0 each PO DAILY [facility] Pat Own Med: Buprenorphine- Naloxone [Suboxone] 4mg/1mg Film 0 each SL BID [facility] Senna/Docusate Sodium (Alicia-Colace) 2 tab PO Q12H PRN PRN Reason: CONSTIPATION Simethicone (Mylicon Chew) 80 mg PO QID PRN PRN Reason: FLATULENCE Sodium Chloride (Ns Flush) 2 ml IV.FLUSH BID [facility] Last Admin: 02/11/18 08:57 Dose: 2 ml Sodium Chloride (Ns Flush) 2 ml IV.FLUSH PRN PRN PRN Reason: FLUSH AFTER USING IV ACCESS Zolpidem Tartrate (Ambien) 5 mg PO HS PRN PRN Reason: INSOMNIA Assessment and Plan - Diagnosis (1) hemorrhage Code(s): O72.1 - Other immediate hemorrhage Status: Acute Plan: Patient is stable. She is s/p repeat LTCS, Vitals are stable, with good urine output. Bakri balloon removed. Minimal bleeding noted. Last hg 7g/dl. Patient had previously received 4units PRBC. Will repeat CBC/fibrinogen at 18:00. Continue IV Clindamycin/Gentamycin. (1) hemorrhage Qualifiers: hemorrhage type: other immediate Qualified Code(s): O72.1 - Other immediate hemorrhage
[2018-02-11] MEDS ORDERED: Measles/Mumps/Rubella Vaccine Inj 0.5 ML Vial SQ ONE (16:00)
[2018-02-11] MEDS ORDERED: Diphtheria/Tetanus/Pertussis Vaccine Inj 0.5 ML Syringe IM ONE (16:00)
[2018-02-11 18:53] LABS: Baso # (Auto) 0.1 th/mm3 (0.0-0.2); Baso % (Auto) 0.3 % (0.0-2.0); Lymph # (Auto) 2.9 th/mm3 (1.0-4.8); Lymph % (Auto) 8.6 % (9.0-44.0); Mean Corpuscular HGB Conc 33.5 % (32.0-36.0); Mean Corpuscular Hemoglobin 30.1 pg (27.0-34.0); Mono # (Auto) 2.4 th/mm3 (0.0-0.9); Mono % (Auto) 7.2 % (0.0-8.0); Neut # (Auto) 28.1 th/mm3 (1.8-7.7); Neut % (Auto) 83.9 % (16.0-70.0); Platelet Count 183 th/mm3 (150-450); Red Cell Distribution Width 15.8 % (11.6-17.2); White Blood Count 33.4 th/mm3 (4.0-11.0)
[2018-02-11 19:03] LABS: Hematocrit 18.9 % (35.0-46.0); Hemoglobin 6.3 gm/dL (11.6-15.3)
[2018-02-11 19:29] LABS: Lymphocytes 11 % (9-44); Monocytes 3 % (0-8)
[2018-02-11 19:30] LABS: Platelet Estimate Normal (Normal); Platelet Morphology Normal (Normal)
[2018-02-11] MEDS ORDERED: Sodium Chlor 0.9% Inj 250 ML IV.SIG SCH (20:00)
[2018-02-11] MEDS: Simethicone 80 MG Chew Tablet PO PRN (21:09)
[2018-02-12 02:57] VITALS: O2SAT 93
[2018-02-12] MEDS: Clindamycin 900 mg/NS Premix 900 MG/50 ML PIGGYBACK IV.SIG SCH ×3 (04:32→20:37)
[2018-02-12] MEDS: HYDROmorphone PF Inj 2 MG/ML Vial IV.PUSH PRN (05:09)
[2018-02-12] MEDS: SODIUM CHLOR 0.9% IV.SIG SCH ×2 (05:10→14:16)
[2018-02-12] MEDS: GENTAMICIN IV.SIG SCH ×2 (05:10→14:16)
--- NOTE | 2018-02-12 07:54 | P.PNOB ---
Subjective Interval history: Patient is a 27 year-old delivered at 38 weeks via elective . Patient then had hemorrhage, with emergency D&C with placement of bakri balloon, status post 7 units of RBCs transfused. The bakri balloon was removed yesterday at 15:00. Song is still place and draining 400 cc, light yellow color, well hydrated. Patient is postop day 2 after . Patient' s pain is well-controlled. Patient reports minimal eating and drinking of clear fluids but denies any nausea or vomiting. Patient reports minimal bleeding. Patient has not passed gas and had no bowel movements. Patient has SCDs on denies any leg pain. She confirms having a cough, and feeling congested, unable to have productive sputum. She confirms feeling chills, and feeling feverish overnight. She still complains of abdominal pain but it is minimal compared to yesterday. She denies any chest pain. Objective Vital Signs/I&O: Vital Signs 02/11/18 08:00 02/11/18 08:15 02/11/18 08:16 Temperature 98.0 F Pulse Rate 86 78 Respiratory Rate 16 Blood Pressure 106/63 105/65 Pulse Oximetry 02/11/18 08:30 02/11/18 09:01 02/11/18 09:49 Temperature 99.3 F Pulse Rate 79 78 85 Respiratory Rate 16 Blood Pressure 106/59 L 116/86 101/59 L Pulse Oximetry 02/11/18 10:05 02/11/18 10:20 02/11/18 10:30 Temperature Pulse Rate 82 79 85 Respiratory Rate Blood Pressure 108/52 L 100/65 107/61 Pulse Oximetry 02/11/18 10:40 02/11/18 10:50 02/11/18 10:51 Temperature 99.2 F Pulse Rate 84 82 Respiratory Rate 16 Blood Pressure 93/78 L Pulse Oximetry 02/11/18 11:20 02/11/18 11:27 02/11/18 11:30 Temperature 101.5 F H Pulse Rate 82 92 H 95 H Respiratory Rate 16 Blood Pressure 104/58 L 102/60 Pulse Oximetry 02/11/18 11:35 02/11/18 12:00 02/11/18 12:25 Temperature Pulse Rate 86 84 82 Respiratory Rate Blood Pressure 105/55 L 104/61 Pulse Oximetry 02/11/18 12:32 02/11/18 13:15 02/11/18 13:25 Temperature 100.4 F H Pulse Rate 84 86 Respiratory Rate 16 16 Blood Pressure 106/54 L 110/60 Pulse Oximetry 02/11/18 13:35 02/11/18 14:30 02/11/18 15:25 Temperature 100.2 F H Pulse Rate 81 85 87 Respiratory Rate 16 Blood Pressure 102/61 102/64 Pulse Oximetry 02/11/18 15:31 02/11/18 15:35 02/11/18 15:45 Temperature Pulse Rate 79 86 Respiratory Rate 16 Blood Pressure 107/55 L 98/60 L Pulse Oximetry 02/11/18 16:05 02/11/18 16:30 02/11/18 16:45 Temperature 99.5 F Pulse Rate 93 H 84 83 Respiratory Rate 16 Blood Pressure 97/53 L 101/46 L 100/49 L Pulse Oximetry 02/11/18 16:50 02/11/18 17:00 02/11/18 17:35 Temperature 99.4 F Pulse Rate 85 84 87 Respiratory Rate 16 Blood Pressure 99/45 L 93/45 L Pulse Oximetry 02/11/18 17:45 02/11/18 18:15 02/11/18 18:31 Temperature Pulse Rate 82 87 84 Respiratory Rate 16 Blood Pressure 108/58 L 93/52 L 98/50 L Pulse Oximetry 02/11/18 19:00 02/11/18 19:22 02/11/18 19:30 Temperature Pulse Rate 81 87 94 H Respiratory Rate 16 Blood Pressure 95/52 L 104/55 L 99/51 L Pulse Oximetry 02/11/18 20:15 02/11/18 20:17 02/11/18 20:20 Temperature 100.1 F H 100.1 F H Pulse Rate 81 88 Respiratory Rate 16 Blood Pressure 93/50 L 99/50 L Pulse Oximetry 97 02/11/18 20:23 02/11/18 20:25 02/11/18 20:30 Temperature 99.0 F Pulse Rate 84 84 Respiratory Rate 16 16 Blood Pressure 98/47 L Pulse Oximetry 97 02/11/18 20:33 02/11/18 20:51 02/11/18 21:15 Temperature 99.0 F Pulse Rate 82 Respiratory Rate 16 Blood Pressure 93/50 L Pulse Oximetry 02/11/18 21:45 02/11/18 22:05 02/11/18 22:18 Temperature 99.3 F Pulse Rate 82 84 77 Respiratory Rate 18 Blood Pressure 91/47 L 96/52 L 97/52 L Pulse Oximetry 98 02/11/18 22:20 02/11/18 22:30 02/11/18 22:34 Temperature 99.3 F 99.3 F Pulse Rate 82 79 84 Respiratory Rate 16 Blood Pressure 97/52 L 91/54 L 91/54 L Pulse Oximetry 02/11/18 22:35 02/11/18 22:40 02/11/18 22:47 Temperature 100.1 F H Pulse Rate 82 80 83 Respiratory Rate 16 Blood Pressure 100/52 L Pulse Oximetry 02/11/18 22:49 02/11/18 22:50 02/11/18 22:55 Temperature 100.1 F H 100.1 F H Pulse Rate 81 91 H 87 Respiratory Rate 16 16 Blood Pressure 100/52 L 96/45 L Pulse Oximetry 02/11/18 23:00 02/11/18 23:30 02/11/18 23:43 Temperature 99.8 F H Pulse Rate 85 88 86 Respiratory Rate Blood Pressure 99/61 L 99/51 L 96/50 L Pulse Oximetry 02/11/18 23:47 02/11/18 23:55 02/12/18 00:00 Temperature Pulse Rate 90 90 92 H Respiratory Rate 16 Blood Pressure 100/54 L 97/48 L Pulse Oximetry 02/12/18 00:15 02/12/18 00:20 02/12/18 00:25 Temperature Pulse Rate 91 H 91 H 91 H Respiratory Rate Blood Pressure 101/48 L Pulse Oximetry 02/12/18 00:30 02/12/18 01:01 02/12/18 01:03 Temperature 100.1 F H 100.1 F H Pulse Rate 93 H 91 H 92 H Respiratory Rate 16 16 Blood Pressure 101/50 L 98/48 L 96/45 L Pulse Oximetry 02/12/18 01:05 02/12/18 01:16 02/12/18 01:17 Temperature 99.9 F H 99.9 F H Pulse Rate 94 H 89 90 Respiratory Rate 16 16 Blood Pressure 96/47 L 96/47 L Pulse Oximetry 91 L 02/12/18 01:20 02/12/18 01:30 09/16/18 02:40 Temperature Pulse Rate 92 H 89 Respiratory Rate 16 Blood Pressure 107/83 106/54 L Pulse Oximetry 02/12/18 02:45 02/12/18 02:56 02/12/18 02:58 Temperature 99.2 F 99.2 F Pulse Rate 87 86 85 Respiratory Rate 16 16 Blood Pressure 102/56 L 102/56 L Pulse Oximetry 93 L 02/12/18 03:00 02/12/18 03:30 02/12/18 03:35 Temperature Pulse Rate 88 89 89 Respiratory Rate Blood Pressure 102/56 L 103/51 L Pulse Oximetry 02/12/18 04:10 02/12/18 04:15 02/12/18 04:19 Temperature 99.8 F H Pulse Rate 96 H 97 H Respiratory Rate 16 16 Blood Pressure 100/59 L 90/67 L Pulse Oximetry 02/12/18 04:35 02/12/18 05:00 02/12/18 05:04 Temperature Pulse Rate 91 H 89 Respiratory Rate 16 Blood Pressure 105/56 L 104/55 L Pulse Oximetry 02/12/18 05:10 02/12/18 05:20 02/12/18 05:48 Temperature Pulse Rate 88 95 H 88 Respiratory Rate 18 Blood Pressure 107/60 104/51 L Pulse Oximetry 02/12/18 06:10 02/12/18 06:14 02/12/18 06:30 Temperature Pulse Rate 91 H 90 Respiratory Rate 16 Blood Pressure 103/59 L 106/56 L Pulse Oximetry 02/12/18 07:00 02/12/18 07:10 02/12/18 07:30 Temperature Pulse Rate 88 88 86 Respiratory Rate Blood Pressure 101/54 L 110/59 L Pulse Oximetry Intake & Output 02/11/18 02/12/18 02/12/18 18:59 06:59 18:59 Intake Total 152.25 / 152.25 1127.25 / 1127.25 Balance 152.25 / 152.25 1127.25 / 1127.25 Weight 61.689 kg Intake: IV 152.25 / 152.25 352.25 / 352.25 Ampicillin Inj 2,000 MG In NS 200 / 200 Inj 100 ML @ 400 mls/hr IV.SIG Q4H [facility] Rx#:[id number] Cleocin 900 mg/NS Premix 900 mg 50 / 50 50 / 50 In 50 ml @ 100 mls/hr IV.SIG Q8H [facility] Rx#:[id number] Gentamicin Inj 90 MG In NS Inj 102.25 / 102.25 102.25 / 102.25 100 ML @ 100 mls/hr IV.SIG Q8H [facility] Rx#:[id number] Intake (Blood Product) Amt 775 / 775 Rbc As-3 Leukoreduced Unit / [id number] Rbc As-3 Leukoreduced Unit 375 / 375 [id number] Rbc As-3 Leukoreduced Unit 375 / 375 [id number] Result Diagrams: 02/12/18 06:58 02/11/18 06:40 Objective Remarks: GENERAL: Well-nourished, well-developed patient. CARDIOVASCULAR: Regular rate and rhythm without murmurs, gallops, or rubs. RESPIRATORY: Breath sounds equal bilaterally. No accessory muscle use. Anterior auscultation. ABDOMEN/GI: Abdomen soft, tender, distended. Incision: Clean, dry and intact. Fundus: Firm, tender above the umbilicus. GENITOURINARY: Light to moderate bleeding. EXTREMITIES: No cyanosis or edema, non-tender, without signs of DVT. Medications and IVs: Active Medications Acetaminophen (Tylenol) 650 mg PO Q6H PRN PRN Reason: PAIN SCALE 1 TO 2 Citric Acid/Sodium Citrate (Sodium Citrate/Citric Acid Liq) 30 ml PO [employer] [facility] Stop: 02/14/18 20:14 Ferrous Sulfate (Ferosul) 65 mg PO DAILY [facility] Last Admin: 02/11/18 10:58 Dose: Not Given Hydromorphone HCl (Dilaudid Pf Inj) 2 mg IV.PUSH Q4H PRN PRN Reason: ABDOMINAL PAIN Last Admin: 02/12/18 05:09 Dose: 2 mg Oxytocin (Pitocin 30 Units/Ns 500 Ml Premix) 30 units in 500 mls @ 100 mls/hr IV.SIG UNSCH PRN PRN Reason: Heavy bleeding Last Admin: 02/11/18 00:05 Dose: 100 mls/hr Tranexamic Acid 1,000 mg/ (Sodium Chloride) 110 mls @ 200 mls/hr IV.SIG ONCE [facility] Last Admin: 02/10/18 23:35 Dose: 200 mls/hr Tranexamic Acid 1,000 mg/ (Sodium Chloride) 110 mls @ 200 mls/hr IV.SIG ONCE [facility] Last Admin: 02/11/18 00:05 Dose: 200 mls/hr Clindamycin/Sodium Chloride (Cleocin 900 Mg/Ns Premix) 900 mg in 50 mls @ 100 mls/hr IV.SIG Q8H [facility] Last Admin: 02/12/18 04:32 Dose: 100 mls/hr Pharmacy Profile Note (Gentamicin Consult Pharmacy) 0 mls @ 0 mls/hr OTHER UNSCH [facility] Gentamicin Sulfate 90 mg/ (Sodium Chloride) 102.25 mls @ 100 mls/hr IV.SIG Q8H [facility] Last Admin: 02/12/18 05:10 Dose: 100 mls/hr Sodium Chloride (Ns Inj) 250 mls @ 15 mls/hr IV.SIG ONCE [facility] Stop: 02/12/18 12:39 Last Admin: 02/11/18 21:08 Dose: 15 mls/hr Lactated Ringer's (Lr 1000 Ml Inj) 1,000 mls @ 84 mls/hr IV.CONT .[id number] [facility] Last Admin: 02/11/18 19:58 Dose: 84 mls/hr Ampicillin Sodium 2,000 mg/ (Sodium Chloride) 100 mls @ 400 mls/hr IV.SIG Q4H [facility] Last Admin: 02/12/18 04:33 Dose: 400 mls/hr Ibuprofen (Motrin) 800 mg PO Q8H PRN PRN Reason: cramping Ketorolac Tromethamine (Toradol Inj) 30 mg IM Q6H PRN PRN Reason: SEE LABEL COMMENTS Methylergonovine Maleate (Methergine) 0.2 mg PO Q6HR [facility] Stop: 02/13/18 06:01 Miscellaneous Information ([facility] Ordered Lab Info) 1 each OTHER ONCE ONE Stop: 02/12/18 13:01 Ondansetron HCl (Zofran Inj) 4 mg IV.PUSH Q6H PRN PRN Reason: NAUSEA OR VOMITING Oxycodone/Acetaminophen (Percocet 5/325 Mg) 1 tab PO Q4H PRN PRN Reason: PAIN SCALE 3 TO 5 Oxycodone/Acetaminophen (Percocet 5/325 Mg) 2 tab PO Q4H PRN PRN Reason: PAIN SCALE 6 TO 10 Pat Own Med: Pnv Cmb #95-Ferrous Fumarate -Fa [] Tablet 0 each PO DAILY [facility] Pat Own Med: Buprenorphine- Naloxone [Suboxone] 4mg/1mg Film 0 each SL BID [facility] Senna/Docusate Sodium (Alicia-Colace) 2 tab PO Q12H PRN PRN Reason: CONSTIPATION Simethicone (Mylicon Chew) 80 mg PO QID PRN PRN Reason: FLATULENCE Last Admin: 02/11/18 21:09 Dose: 80 mg Sodium Chloride (Ns Flush) 2 ml IV.FLUSH BID [facility] Last Admin: 02/11/18 20:51 Dose: Not Given Sodium Chloride (Ns Flush) 2 ml IV.FLUSH PRN PRN PRN Reason: FLUSH AFTER USING IV ACCESS Zolpidem Tartrate (Ambien) 5 mg PO HS PRN PRN Reason: INSOMNIA Assessment and Plan - Plan 27-year-old female at 38 weeks delivered via repeat , postop day # 2. Complicated with hemorrhage, emergency D&C with bakri balloon placement. Patient was febrile yesterday. - Bakri balloon removed yesterday at 1500. Patient has minimal bleeding today. - Hb today: 9.1. Increased from 6.3 yesterday. Status post 7 units of RBCs transfused. - Hematocrit: 26.2 today increased from 18.9 yesterday. - Fibrinogen 376 today increased From 311 yesterday. - Patient became febrile yesterday, on gentamicin, ampicillin and clindamycin for endometritis coverage. Leukocytosis trending down.Patient has been afebrile overnight. - DC ampicillin. Continue on gentamicin and clindamycin. -Song shows more than 400 cc output in the last 3 hours. Urinating well. DC Song. -Ambulate as tolerated, Regular diet. -Routine Care. -Continue to monitor CBC at 1 pm -Discussed with Dr. Garcia
[2018-02-12 08:10] LABS: Baso % (Auto) 0.1 % (0.0-2.0); Eos % (Auto) 0.1 % (0.0-4.0); Hematocrit 26.2 % (35.0-46.0); Hemoglobin 9.1 gm/dL (11.6-15.3); Lymph # (Auto) 2.4 th/mm3 (1.0-4.8); Lymph % (Auto) 9.7 % (9.0-44.0); Mean Corpuscular HGB Conc 34.9 % (32.0-36.0); Mean Corpuscular Hemoglobin 29.4 pg (27.0-34.0); Mean Corpuscular Volume 84.2 fL (80.0-100.0); Mean Platelet Volume 8.7 fL (7.0-11.0); Mono % (Auto) 8.1 % (0.0-8.0); Neut # (Auto) 19.8 th/mm3 (1.8-7.7); Platelet Count 149 th/mm3 (150-450); Red Blood Count 3.11 mil/mm3 (4.00-5.30); Red Cell Distribution Width 17.4 % (11.6-17.2); White Blood Count 24.2 th/mm3 (4.0-11.0)
[2018-02-12] MEDS: Simethicone 80 MG Chew Tablet PO PRN ×2 (08:59→16:23)
[2018-02-12] MEDS ORDERED: guaiFENesin 600 MG ER Tablet PO PRN ×2 (09:03→09:30)
[2018-02-12] MEDS: Ferrous Sulfate 325 MG Tablet PO SCH (10:19)
[2018-02-12 12:57] LABS: Hematocrit 27.7 % (35.0-46.0); Hemoglobin 9.4 gm/dL (11.6-15.3); Mean Corpuscular HGB Conc 33.9 % (32.0-36.0); Mean Corpuscular Hemoglobin 29.2 pg (27.0-34.0); Mean Platelet Volume 7.9 fL (7.0-11.0); Platelet Count 159 th/mm3 (150-450); Red Blood Count 3.22 mil/mm3 (4.00-5.30); Red Cell Distribution Width 17.7 % (11.6-17.2); White Blood Count 22.5 th/mm3 (4.0-11.0)
[2018-02-12] MEDS ORDERED: Pharmacy Ordered Lab Info OTHER ONE (13:00)
[2018-02-12 13:29] LABS: Alanine Aminotransferase 18 U/L (10-53); Albumin 1.6 g/dL (3.4-5.0); Alkaline Phosphatase 89 U/L (45-117); Anion Gap 8 meq/L (5-15); Aspartate Aminotransferase 27 U/L (15-37); Blood Urea Nitrogen 10 mg/dL (7-18); Calcium 6.9 mg/dL (8.5-10.1); Carbon Dioxide 25.2 meq/L (21.0-32.0); Chloride 108 meq/L (98-107); Gentamicin,Trough 0.7 mcg/mL (0.0-2.0); Glomerular Filtration Rate Greater Than 89 mL/min (>89); Glucose,Random 91 mg/dL (74-106); Potassium 4.2 meq/L (3.5-5.1); Sodium 141 meq/L (136-145); Total Protein 4.3 g/dL (6.4-8.2)
[2018-02-13] MEDS: SODIUM CHLOR 0.9% IV.SIG SCH ×2 (00:07→06:01)
[2018-02-13] MEDS: GENTAMICIN IV.SIG SCH ×2 (00:07→06:01)
[2018-02-13] MEDS: Simethicone 80 MG Chew Tablet PO PRN (03:51)
[2018-02-13] MEDS: Clindamycin 900 mg/NS Premix 900 MG/50 ML PIGGYBACK IV.SIG SCH (06:01)
[2018-02-13 08:08] VITALS: BP 107/74; PULSE 85; RESP 18; TEMP 98.8
--- NOTE | 2018-02-13 08:43 | P.PNOB ---
Subjective Post op day: 3 Interval history: Patient is a 27-year-old delivered at 37 weeks and 6 days. Patient is day 3 after c/s. Patient then had hemorrhage, with emergency D&C with placement of bakri balloon, status post 7 units of RBCs transfused. The bakri balloon was removed 02/11 at 15:00. Patient's pain is well-controlled. Patient reports minimal bleeding. Patient reports eating and drinking without any nausea or vomiting. Patient has passed gas but has not had a bowel movement. Patient denies chest pain and shortness of breath. Patient has been ambulating; she denies lower extremity pain. Patient reports desire for contraception, which she will discuss with her PCP at her first follow-up visit. Patient has decided to bottle-feed. Patient reports respiratory congestion. She has had productive cough. Objective Vital Signs/I&O: Vital Signs 02/12/18 08:45 02/12/18 09:30 02/12/18 09:32 Temperature 99.4 F Pulse Rate 81 86 Respiratory Rate Blood Pressure 105/62 107/61 02/12/18 09:35 02/12/18 10:21 02/12/18 10:22 Temperature 99.2 F Pulse Rate 88 84 Respiratory Rate 18 Blood Pressure 106/59 L 02/12/18 12:25 02/12/18 12:28 02/12/18 13:28 Temperature 98.0 F 98.0 F Pulse Rate 88 74 Respiratory Rate 18 18 Blood Pressure 112/71 100/62 02/12/18 16:55 02/12/18 16:56 02/12/18 20:33 Temperature 97.7 F 98.7 F Pulse Rate 97 H 76 Respiratory Rate 18 16 Blood Pressure 118/69 93/56 L 02/13/18 08:00 Temperature 98.8 F Pulse Rate 85 Respiratory Rate 18 Blood Pressure 107/74 Result Diagrams: 02/12/18 12:46 02/12/18 12:46 Objective Remarks: GENERAL: Well-nourished, well-developed patient. CARDIOVASCULAR: Regular rate and rhythm without murmurs, gallops, or rubs. RESPIRATORY: Breath sounds equal bilaterally. No accessory muscle use. ABDOMEN/GI: Abdomen soft, non-tender, bowel sounds present. Incision: Clean, dry and intact. Fundus: Firm, minimally tender above umbilicus, marking on skin. GENITOURINARY: Light to moderate bleeding. EXTREMITIES: No cyanosis or edema, non-tender, without signs of DVT. Medications and IVs: Active Medications Acetaminophen (Tylenol) 650 mg PO Q6H PRN PRN Reason: PAIN SCALE 1 TO 2 Buprenorphine HCl (Sublingual) 8 mg SL BID [facility] Last Admin: 02/12/18 20:36 Dose: 8 mg Citric Acid/Sodium Citrate (Sodium Citrate/Citric Acid Liq) 30 ml PO [employer] [facility] Stop: 02/14/18 20:14 Ferrous Sulfate (Ferosul) 65 mg PO DAILY [facility] Last Admin: 02/12/18 10:19 Dose: Not Given Guaifenesin (Mucinex Er) 600 mg PO BID PRN PRN Reason: COUGH Last Admin: 02/12/18 10:19 Dose: 600 mg Hydromorphone HCl (Dilaudid Pf Inj) 2 mg IV.PUSH Q4H PRN PRN Reason: ABDOMINAL PAIN Last Admin: 02/12/18 05:09 Dose: 2 mg Oxytocin (Pitocin 30 Units/Ns 500 Ml Premix) 30 units in 500 mls @ 100 mls/hr IV.SIG UNSCH PRN PRN Reason: Heavy bleeding Last Admin: 02/11/18 00:05 Dose: 100 mls/hr Clindamycin/Sodium Chloride (Cleocin 900 Mg/Ns Premix) 900 mg in 50 mls @ 100 mls/hr IV.SIG Q8H [facility] Last Admin: 02/13/18 06:01 Dose: 100 mls/hr Pharmacy Profile Note (Gentamicin Consult Pharmacy) 0 mls @ 0 mls/hr OTHER UNSCH [facility] Gentamicin Sulfate 90 mg/ (Sodium Chloride) 102.25 mls @ 100 mls/hr IV.SIG Q8H [facility] Last Admin: 02/13/18 06:01 Dose: 100 mls/hr Lactated Ringer's (Lr 1000 Ml Inj) 1,000 mls @ 42 mls/hr IV.CONT .[id number] [facility] Last Admin: 02/12/18 11:49 Dose: 42 mls/hr Ibuprofen (Motrin) 800 mg PO Q8H PRN PRN Reason: cramping Last Admin: 02/12/18 16:23 Dose: 800 mg Ketorolac Tromethamine (Toradol Inj) 30 mg IM Q6H PRN PRN Reason: SEE LABEL COMMENTS Ondansetron HCl (Zofran Inj) 4 mg IV.PUSH Q6H PRN PRN Reason: NAUSEA OR VOMITING Oxycodone/Acetaminophen (Percocet 5/325 Mg) 1 tab PO Q4H PRN PRN Reason: PAIN SCALE 3 TO 5 Last Admin: 02/12/18 14:17 Dose: 1 tab Oxycodone/Acetaminophen (Percocet 5/325 Mg) 2 tab PO Q4H PRN PRN Reason: PAIN SCALE 6 TO 10 Last Admin: 02/12/18 08:59 Dose: 2 tab Pat Own Med: Pnv Cmb #95-Ferrous Fumarate -Fa [] Tablet 0 each PO DAILY [facility] Pat Own Med: Buprenorphine- Naloxone [Suboxone] 4mg/1mg Film 0 each SL BID [facility] Senna/Docusate Sodium (Alicia-Colace) 2 tab PO Q12H PRN PRN Reason: CONSTIPATION Last Admin: 02/12/18 08:59 Dose: 2 tab Simethicone (Mylicon Chew) 80 mg PO QID PRN PRN Reason: FLATULENCE Last Admin: 02/13/18 03:51 Dose: 80 mg Sodium Chloride (Ns Flush) 2 ml IV.FLUSH BID [facility] Last Admin: 02/12/18 11:49 Dose: Not Given Sodium Chloride (Ns Flush) 2 ml IV.FLUSH PRN PRN PRN Reason: FLUSH AFTER USING IV ACCESS Zolpidem Tartrate (Ambien) 5 mg PO HS PRN PRN Reason: INSOMNIA Assessment and Plan - Diagnosis (1) delivery delivered Code(s): O82 - Encounter for delivery without indication Status: Acute (2) hemorrhage Code(s): O72.1 - Other immediate hemorrhage Status: Acute (3) Upper respiratory disease Code(s): J39.9 - Disease of upper respiratory tract, unspecified Status: Acute - Plan Patient is a 27-year-old delivered at 37 weeks and 6 days. Patient is day 3 after c/s. Complicated by hemorrhage, emergency D&C with bakri balloon placement. Patient reporting URI symptoms. Bakri balloon removed. Patient has minimal bleeding today. S/p 7 units of RBCs transfused. Hgb: 9.4. URI symptoms improved on Muxinex. Continue routine care. Motrin and Tylenol when necessary for pain. Encourage OOB. Incision check in 1 week. Pelvic rest for 6 weeks will need follow-up appointment at that time. Contraception: To be discussed with PCP. Anticipate discharge today. [facility] hospitalist (2) hemorrhage Qualifiers: hemorrhage type: other immediate Qualified Code(s): O72.1 - Other immediate hemorrhage
[2018-02-13] MEDS: Ferrous Sulfate 325 MG Tablet PO SCH (08:54)
[2018-02-13] MEDS ORDERED: Diphtheria/Tetanus/Pertussis Vaccine Inj 0.5 ML Syringe IM ONE (12:45)
== END 2018-02-13 13:55 | disposition home or self-care (01) ==
LOC: HOBED 19:12 → H2E 19:57 → H1EA 02-12 16:00
PROVIDERS: ADMIT Obstetrics & Gynecology Maternal & Fetal Medicine; ATTEND Obstetrics & Gynecology Maternal & Fetal Medicine